=== PATIENT | male | born 1935 | race Caucasian/White ===

== ENCOUNTER → 2016-05-24 | Outpatient (CLI) | payer MEDICARE, OTHER | END | disposition home or self-care (01) | LOC: GMA 19:52 | PROVIDERS: ATTEND Nurse Practitioner Family | DX: R39.15 Urgency of urination (principal) ==

== ENCOUNTER → 2016-06-21 | Outpatient (CLI) | payer MEDICARE, OTHER | END | disposition home or self-care (01) | LOC: GMAL 11:01 | PROVIDERS: ATTEND Family Medicine | DX: Z12.5 Encounter for screening for malignant neoplasm of prostate (principal); D51.3 Other dietary vitamin B12 deficiency anemia | CPT/HCPCS: 82607; G0103 ==

== ENCOUNTER → 2016-06-29 | Outpatient (CLI) | payer MEDICARE, OTHER | END | disposition home or self-care (01) | LOC: GMAL 16:45 | PROVIDERS: ATTEND Family Medicine | DX: D53.9 Nutritional anemia, unspecified (principal); R53.82 Chronic fatigue, unspecified ==

== ENCOUNTER → 2016-07-03 | Outpatient (CLI) | payer MEDICARE, OTHER ==
--- NOTE | 2016-07-03 11:33 | US ---
EXAM DESCRIPTION: Bladder CLINICAL HISTORY: 80 years Male, RENAL INSUFFICIENCY COMPARISON: None. FINDINGS: Bladder ultrasound was performed. There is irregular thickening of the bladder floor measuring approximately 3 cm AP by 3 cm transverse by 1.3 cm thickness. There is questionable additional mild thickening involving a portion of the right bladder wall measuring up to 7 mm thickness. Prevoid bladder volume 122 mL, post void residual volume 55 mL. IMPRESSION: Bladder wall thickening involving the floor of the bladder which may be related to mass effect from an enlarged prostate versus true wall thickening. Questionable additional mild wall thickening involving the right side of the bladder. CT cystogram or cystoscopy is suggested for further evaluation. Moderate amount of post void residual bladder urine as detailed above. Electronically signed by: Jesse Arcos MD 07/03/2016 11:32 AM CDT
== END | disposition home or self-care (01) ==
LOC: US 10:08
PROVIDERS: ATTEND Family Medicine
DX: N17.8 Other acute kidney failure (principal)

== ENCOUNTER 2016-07-20 12:12 | Observation (INO) | payer MEDICARE, OTHER ==
[2016-07-20] MEDS ORDERED: GABAPENTIN 300 MG CAP PO ONE (13:01)
[2016-07-20] MEDS ORDERED: SODIUM CHLORIDE 0.9% 1000ML 1,000 ML IVS ONE (13:01)
[2016-07-20] MEDS ORDERED: MULTIPLE VITAMIN INJ 10 ML, THIAMINE HCL INJ 100 MG in SODIUM CHLORIDE 0.9% 1000ML 1,00... IVS ONE (13:03)
--- NOTE | 2016-07-20 13:24 | RAD ---
EXAM DESCRIPTION: Chest,2 Views CLINICAL HISTORY: worsening tremor COMPARISON: None TECHNIQUE: PA/lateral FINDINGS: The lungs appear to be mildly hyperexpanded but without severe fibrotic lung disease or focal mass or infiltrate. No effusions are noted. The heart is normal in size with tortuous ectatic aortic arch and descending aorta. The vascularity is normal. The velia and mediastinum demonstrate normal contours. The bony spine and chest wall is normal for age in appearance. IMPRESSION: Mildly hyperexpanded chest and tortuous aorta, otherwise negative study. Electronically signed by: Dipak Pulido MD 07/20/2016 1:23 PM CDT
[2016-07-20] MEDS ORDERED: THIAMINE HCL INJ 100 MG/ML VIAL ONE (13:47)
[2016-07-20] MEDS ORDERED: MULTIPLE VITAMIN 10 ML VIAL ONE (13:47)
[2016-07-20] MEDS ORDERED: SODIUM CHLORIDE 0.9% 1000ML 1,000 ML ONE (13:47)
--- NOTE | 2016-07-20 13:52 | ED.PDOC ---
History of Present Illness - General Chief Complaint: Neuro Symptoms/Deficits Time Seen by Provider: 07/20/16 12:29 Source: patient Exam Limitations: no limitations - History of Present Illness Initial Comments: the patient is an 80-year-old male presenting to the emergency room secondary to an increase in his baseline tremors with associated difficulty in walking. The patient apparently ran out of his alprazolam a few days ago and started having the symptoms above yesterday evening. He has been on benzodiazepines for long period of time. I was actually the patient's primary care doctor up until about 2 years ago. He has had a tremor for at least the past 10 years. The benzodiazepines and gabapentin has helped control it. He was just recently set up with Dr. Coelho here in [facility] as his new primary care doctor and has had a thyroid level, B12 level and an iron panel performed that I can find. He does have mild iron deficiency. His B12 and thyroid levels appear normal. There is also some concern for bladder wall thickening. He is being set up with urology for that. he is not having any focal neurological changes. No difficulties with sensation and no new pain. He has no new weakness, simply an increase in his tremor and muscle fasciculations. I have not seen the patient in a few years and he has lost at least 20 pounds from the last time I saw him. He does have COPD and does still smoke. Over the last 6 months he has apparently had increasing difficulties getting around and has started using a cane. Timing/Duration: unsure Severity: moderate Improving Factors: nothing Worsening Factors: nothing Associated Symptoms: weakness Allergies/Adverse Reactions: Allergies Penicillins Allergy (Verified 07/20/16 12:21) Rash Home Medications: Ambulatory Orders Amlodipine Besylate 10 mg PO DAILY 07/20/16 Finasteride 5 mg PO DAILY 07/20/16 Gabapentin 400 mg PO TID 07/20/16 HYDROcodone 10MG/APAP 325MG [[place] 10/325] 1 tab PO TID PRN 07/20/16 Tamsulosin [Flomax] 0.4 mg PO DAILY 07/20/16 Review of Systems - Review of Systems Constitutional: States: malaise EENTM: States: no symptoms reported Respiratory: States: no symptoms reported Cardiology: States: no symptoms reported Gastrointestinal/Abdominal: States: no symptoms reported Genitourinary: States: no symptoms reported Musculoskeletal: States: see HPI Skin: States: no symptoms reported Neurological: States: see HPI, tremors, weakness Endocrine: States: no symptoms reported All other Systems: No Change from Baseline Past Medical History (General) - Patient Medical History Hx Stroke: No Hx Cardiac Disorders: Yes - AAA w/stent placement 2014 Hx Hypertension: Yes Hx Diabetes: No - Vaccination History Hx Influenza Vaccination: No Hx Pneumococcal Vaccination: Yes - 2016 - Social History Hx Tobacco Use: Yes Family Medical History - Family History Father Living Status: Cause of : Cancer Physical Exam - Physical Exam General Appearance: Alert, No apparent distress Eye Exam: bilateral normal Ears, Nose, Throat: hearing grossly normal, normal ENT inspection, normal pharynx Neck: non-tender, full range of motion, supple, normal inspection Respiratory: chest non-tender, lungs clear, normal breath sounds, no respiratory distress, no accessory muscle use Cardiovascular/Chest: normal peripheral pulses, regular rate, rhythm, no edema Peripheral Pulses: radial,right: 2+, radial,left: 2+, dorsalis pedis,right: 2+, dorsalis pedis,left: 2+ Gastrointestinal/Abdominal: non tender, soft Rectal Exam: deferred Back Exam: no CVA tenderness, no vertebral tenderness, other - severe scoliosis is present Extremity: normal range of motion, no pedal edema, no calf tenderness, normal capillary refill, other - significant tremor is present actually in all 4 extremities. He does have significant fasciculations in his upper extremities Neurologic: alert, normal mood/affect, oriented x 3 - the patient maintains normally. Skin Exam: normal color Comments: Vital Signs - 24 hr 07/20/16 12:19 Temperature 98.2 F Pulse Rate [ 88 Left Radial] Respiratory 22 Rate Blood Pressure 143/107 [Left Arm] O2 Sat by Pulse 96 Oximetry Progress - Progress Progress: 07/20/16 16:21 the patient is an 80-year-old male presenting to the emergency room secondary to progressive tremors and fasciculations leading to a significant decline in his functional status as he is unable to get around on his own. The patient did have a baseline tremor to start with. this deterioration has made him be unable to function for himself over the last [address] is negative for acute changes. Lab work is reassuring with the exception of some dehydration. he has received IV fluids here. He has also received thiamine and multivitamin here. The patient does have a long-standing history of poor nutrition but no alcohol abuse. He has lost significant weight over the last few years. He did have approximately 5 minutes of a benign visual hallucination floating gilbert today, here after he received a second dose of Neurontin this morning. he knew it was a hallucination. He has been alert and oriented 4. He has not had any headache or fevers. No recent trauma. I believe the worsening of his movement issues are primarily due to running out of his twice daily benzodiazepine. He has received a dose of Ativan here. It may also have been compounded by getting dehydrated yesterday while mowing the yard. He does take a fairly large dose of Neurontin and the combination of running out of his benzodiazepine and getting somewhat dehydrated may have triggered some extrapyramidal symptoms. The patient has received a dose of oral Cogentin. His tremors and movement abnormalities are improving. He is still not quite back able to ambulate on his own as he obviously was able to do yesterday. The patient will be admitted for further monitoring and he will receive his scheduled routine medications tonight including his benzodiazepines. If he worsens in any way then he will need to be transferred for formal neurological evaluation. He already sees Dr. Gandara in [place] for his pain management. A physical therapy evaluation in the morning may also prove beneficial as he has had significant deterioration physically in his functional status over the last 6 months. - Results/Orders Results/Orders: 07/20/16 Dinner Regular Diet Laboratory Results - last 24 hr 07/20/16 07/20/16 07/20/16 13:25 13:25 13:25 WBC 10.3 RBC 3.82 L Hgb 10.1 L Hct 31.1 L MCV 81.3 MCH 26.4 L MCHC 32.6 L RDW 16.7 H Plt Count 221 MPV 7.8 Absolute Neuts (auto) 8.60 H Absolute Lymphs (auto) 0.80 L Absolute Monos (auto) 0.70 Absolute Eos (auto) 0.10 Absolute Basos (auto) 0.10 Neutrophils % 83.7 H Lymphocytes % 7.4 L Monocytes % 7.0 Eosinophils % 1.1 Basophils % 0.8 Sodium 133 L Potassium 4.2 Chloride 96 L Carbon Dioxide 28 Anion Gap 13.2 BUN 29 H Creatinine 1.40 H BUN/Creatinine Ratio 20.7 H Random Glucose 120 H Serum Osmolality 273.4 L Calcium 9.4 Magnesium 2.4 Total Bilirubin 0.6 AST 27 ALT 16 Alkaline Phosphatase 70 Creatine Kinase 174 CK-MB (CK-2) 4.2 CK-MB (CK-2) % Not Reportable Troponin I < 0.02 B-Natriuretic Peptide 141.0 H Serum Total Protein 7.8 Albumin 4.3 Globulin 3.5 Albumin/Globulin Ratio 1.2 Urine Color Urine Appearance Urine pH Ur Specific [place] Urine Protein Urine Glucose (UA) Urine Ketones Urine Blood Urine Nitrite Urine Bilirubin Urine Urobilinogen Ur Leukocyte Esterase Urine RBC Urine WBC Ur Epithelial Cells Urine Bacteria 07/20/16 13:55 WBC RBC Hgb Hct MCV MCH MCHC RDW Plt Count MPV Absolute Neuts (auto) Absolute Lymphs (auto) Absolute Monos (auto) Absolute Eos (auto) Absolute Basos (auto) Neutrophils % Lymphocytes % Monocytes % Eosinophils % Basophils % Sodium Potassium Chloride Carbon Dioxide Anion Gap BUN Creatinine BUN/Creatinine Ratio Random Glucose Serum Osmolality Calcium Magnesium Total Bilirubin AST ALT Alkaline Phosphatase Creatine Kinase CK-MB (CK-2) CK-MB (CK-2) % Troponin I B-Natriuretic Peptide Serum Total Protein Albumin Globulin Albumin/Globulin Ratio Urine Color Yellow Urine Appearance Clear Urine pH 7.0 Ur Specific [place] 1.015 Urine Protein 30 Urine Glucose (UA) Negative Urine Ketones Negative Urine Blood Small H Urine Nitrite Negative Urine Bilirubin Negative Urine Urobilinogen 0.2 Ur Leukocyte Esterase Negative Urine RBC 3-5 H Urine WBC 0 Ur Epithelial Cells 0 Urine Bacteria [address] shows no acute changes. No hemorrhage. No midline shift. No hydrocephalus. Chest x-ray shows emphysematous changes only. Departure - Departure Clinical Impression: Benzodiazepine withdrawal with delirium, Gait instability Disposition: Admit Patient Referrals: Juliocesar Coelho III, MD [Primary Care Provider] - 1-2 Weeks Home Medications: Ambulatory Orders Amlodipine Besylate 10 mg PO DAILY 07/20/16 Finasteride 5 mg PO DAILY 07/20/16 Gabapentin 400 mg PO TID 07/20/16 HYDROcodone 10MG/APAP 325MG [[place] 10/325] 1 tab PO TID PRN 07/20/16 Tamsulosin [Flomax] 0.4 mg PO DAILY 07/20/16 Decision To Admit - Decistion To Admit Decision to Admit Reason: Medical Nature Decision to Admit Date: 07/20/16 Decision to Admit Time: 16:29
[2016-07-20] MEDS ORDERED: BENZTROPINE MESYLATE TAB 1 MG TAB PO ONE (14:31)
--- NOTE | 2016-07-20 15:07 | CT ---
EXAM DESCRIPTION: Head. CT head without contrast. CLINICAL HISTORY: marked increased tremors last 24 hours COMPARISON: None available TECHNIQUE: Multiple axial images of the head without contrast. This exam was performed according to our departmental dose-optimization program, which includes automated exposure control, adjustment of the mA and/or kV according to patient size and/or use of iterative reconstruction technique. FINDINGS: There is no CT evidence of intracranial hemorrhage, mass effect, or acute cortical infarction. Mild generalized volume loss. Mild patchy supratentorial white matter hypodensities. There are no abnormal extra-axial fluid collections. Vascular structures are unremarkable. There is no acute calvarial defect. Moderate mucosal thickening in the ethmoid air cells. The mastoid air cells are clear. IMPRESSION: 1. No CT evidence of an acute intracranial abnormality. 2. Mild senescent changes. Electronically signed by: Kurt Khalil MD 07/20/2016 3:07 PM CDT
--- NOTE | 2016-07-20 17:19 | HP ---
SUPERVISING PHYSICIAN: Francesco Carrizales MD CHIEF COMPLAINT: "I couldn't walk, I couldn't talk, and I had these jerky movements." HISTORY OF PRESENT ILLNESS: This is an 80-year-old male patient who came to the Emergency Room today due to an increase from his baseline tremors as well as an acute gait instability. His symptoms began a little before midnight last night and have increasingly worsened over the last 24 hours. He does have a significant history of tremors and previously saw Dr. Ba Donohue as his primary care physician about 2 years ago in [place] and has recently started seeing Dr. Coelho here in [place]. He also sees Dr. Gandara in [place] for his pain management. He ran out of his alprazolam about 3 or 4 days ago and so he just stopped taking it. He has been on scheduled benzodiazepines for many years. In the Emergency Room, he was given Cogentin, an extra dose of Neurontin , as well as some fluids. There was also a question whether he got over heated the day before yesterday while mowing a lawn and there was a was also a question if he was dehydrated. In the Emergency Room, he was found to have a slightly low sodium at 133, chloride 96, BUN 29, creatinine 1.4. Glucose 120. BNP 141. WBC 10.3, hemoglobin 10.1, hematocrit 31.1, platelet count 221. Urine had a small amount of urine RBCs as well as a small amount of urine blood. His chest x-ray was basically within normal limits. He had a head CT done that showed no CT evidence of an acute intracranial abnormality and mild senescent changes. His tremors subsided mostly in the Emergency Room, but he did start to have some visual hallucinations, although those subsided at some point. I was called for admission to the hospital. PAST MEDICAL HISTORY: 1. Hypertension. 2. Peripheral vascular disease. 3. Chronic obstructive pulmonary disease. 4. Benign prostatic hypertrophy. PAST SURGICAL HISTORY: 1. Appendectomy. 2. Common iliac angioplasty per Dr. Louis in 2013. 3. Endovascular repair of an 8.2 cm infrarenal abdominal aortic aneurysm per Dr. Sandoval in 2013. CURRENT MEDICATIONS: Per the EMR and awaiting verification. ALLERGIES: PENICILLIN. SOCIAL HISTORY: He is retired. He is . He has 2 children. He currently smokes 2 packs of cigarettes per day. He denies any ETOH or illicit drug use. REVIEW OF SYSTEMS: GENERAL: Positive for a 20 pound weight loss in the last year. Negative for fever or fatigue. HEENT: Denies sinus symptoms, ear pain, or sore throat. RESPIRATORY: Denies wheezing, coughing or shortness of breath. CARDIAC: Denies chest pain, palpitations or tachycardia. GASTROINTESTINAL: Denies nausea, vomiting, diarrhea, or abdominal pain. MUSCULOSKELETAL: Denies arthralgias, myalgias. NEUROLOGIC: As per history of present illness. SKIN: Denies lesions or rashes. PHYSICAL EXAMINATION: VITAL SIGNS: Afebrile. Heart rate 81. Blood pressure 174/96. Respiratory rate 16. O2 saturation 95%. GENERAL: This is a thin, 80-year-old, male patient who is lying in his hospital bed. He is in no acute distress. HEENT: Normocephalic, atraumatic. Pupils are equal and reactive. NECK: Supple without mass. RESPIRATORY: Scattered rhonchi throughout with somewhat distant breath sounds throughout. CARDIAC: Regular rate and rhythm. ABDOMEN: Soft, nondistended, nontender. Bowel sounds are positive. EXTREMITIES: No cyanosis, clubbing or edema. NEUROLOGIC: Awake, alert and oriented times three. There are no visible tremors at this time. SKIN: Warm and dry. LABORATORY AND FILMS: As per history of present illness. ASSESSMENT: 1. Benzodiazepine withdrawal with delirium. 2. Gait instability. The patient does use a cane regularly, but there was a significant change in his gait over the last 24 hours. 3. Acute renal failure with no history of chronic renal failure. 4. Chronic obstructive pulmonary disease. 5. Anorexia. 6. Hypertension. 7. Benign prostatic hypertrophy. 8. Chronic tobacco abuse. PLAN: We will place the patient in observation overnight. We will monitor his neurologic symptoms overnight and re-start his home medications including his Xanax. I will repeat his lab in the morning. He will need close followup with his neurologist, Dr. Gandara, as well as Dr. Coelho, his primary care physician. We will continue to monitor the patient closely and follow as needed. #[id number] [facility]
[2016-07-20] MEDS ORDERED: SODIUM CHLORIDE 0.9% (FLUSH) 10 ML SYG IV PRN (22:05)
[2016-07-20] MEDS ORDERED: ACETAMINOPHEN 325 MG TAB PO PRN (22:10)
[2016-07-20] MEDS ORDERED: HYDROcodone 10MG/APAP 325MG 1 EA TAB PO PRN (22:13)
[2016-07-20] MEDS ORDERED: IV SET AND CAP CHANGE INJ INJ SCH (22:30)
[2016-07-20] MEDS: GABAPENTIN 400 MG CAP PO SCH (22:44)
[2016-07-20] MEDS ORDERED: GABAPENTIN 400 MG CAP ONE (22:44)
[2016-07-20] MEDS ORDERED: ALPRAZolam 0.5 MG TAB PO ONE (23:27)
[2016-07-21] MEDS ORDERED: amLODIPine BESYLATE 5 MG TAB ONE (08:19)
[2016-07-21] MEDS ORDERED: GABAPENTIN 400 MG CAP ONE (08:20)
[2016-07-21] MEDS ORDERED: FINASTERIDE 5 MG TAB PO SCH (09:00)
[2016-07-21] MEDS ORDERED: TAMSULOSIN 0.4 MG CAP PO SCH (09:00)
[2016-07-21] MEDS ORDERED: ALPRAZolam 0.5 MG TAB PO SCH (09:00)
[2016-07-21] MEDS ORDERED: ASPIRIN EC 81 MG TAB PO SCH (09:00)
[2016-07-21] MEDS ORDERED: amLODIPine BESYLATE 5 MG TAB PO SCH (09:00)
[2016-07-21] MEDS: GABAPENTIN 400 MG CAP PO SCH (09:07)
--- NOTE | 2016-07-21 10:34 | DS ---
SUPERVISING PHYSICIAN: Zac Donohue MD DISCHARGE DIAGNOSIS: 1. Benzodiazepine withdrawal with delirium. 2. Gait instability. The patient does use a cane regularly, but there was a significant change in his gait over the last 24 hours. 3. Acute renal failure with no history of chronic renal failure. 4. Chronic obstructive pulmonary disease. 5. Anorexia. 6. Hypertension. 7. Benign prostatic hypertrophy. 8. Chronic tobacco abuse. HISTORY OF PRESENT ILLNESS: This is an 80-year-old male patient who came to the Emergency Room yesterday due to an increase from his baseline tremors as well as an acute gait instability. He said he could not walk, could not talk, and he had jerky movements. His symptoms began a little before midnight that night and had increasingly worsened over the previous 24 hours. He does have a significant history of tremors. He previously saw Dr. Ba Donohue as his primary care physician about 2 years ago in [place] and has recently started seeing Dr. Coelho here in [place]. He also sees Dr. Gandara in [place] for his pain management. He ran out of his alprazolam about 3 or 4 days ago and so he just stopped taking it. He has been on scheduled benzodiazepines for many years. In the Emergency Room, he was given Cogentin, an extra dose of Neurontin , as well as some fluids. He could have been over heated from 2 days prior to admission when he worked out in the yard and he stated he got very hot. In the Emergency Room, he was found to have a slightly low sodium at 133, chloride 96, BUN 29, creatinine 1.4. Glucose 120. BNP 141. WBC 10.3, hemoglobin 10.1, hematocrit 31.1, platelet count 221. His chest x-ray was basically within normal limits. He had a head CT done that showed no CT evidence of an acute intracranial abnormality and mild senescent changes. His tremors subsided mostly in the Emergency Room. At one point in the Emergency Room, he did have some visual hallucinations, although those subsided before he was admitted to the hospital. HOSPITAL COURSE: He has had no significant tremors overnight. He states he feels much better today. His home medications were restarted. Today, his lab is basically unchanged with the exception of his creatinine that went up from 1.4 yesterday to 1.63. I do not have a history of any renal disease although the patient is somewhat a poor historian. His vital signs are stable and the patient can be discharged today. DISCHARGE PLAN: the patient will be discharged home in stable condition. He is to resume his previous diet and increase his activity as tolerated. I have given a prescription for Xanax 0.5 mg p.o. b.i.d., #28, so he has Xanax for [address] see [address] Coelho on 07/26/16 at 2:30 PM. He is also to have a followup with Dr. Gandara. DISCHARGE MEDICATIONS: 1. Finasteride. 2. Amlodipine. 3. Gabapentin. 4. Flomax. 5. Hydrocodone. 6. Alprazolam. Dr. Donohue is the collaborating physician and available for consultation. #[id number] [facility]
[2016-07-21 10:50] VITALS: BP 148/68; TEMP 97.5
[2016-07-21 11:03] VITALS: O2SAT 94
== END 2016-07-21 11:00 | disposition home or self-care (01) ==
LOC: ER 12:12 → MS 17:19
PROVIDERS: ADMIT Nurse Practitioner Acute Care; ATTEND Nurse Practitioner Acute Care
DX: F13.231 Sedative, hypnotic or anxiolytic dependence with withdrawal delirium (principal); T42.4X6A Underdosing of benzodiazepines, initial encounter; R26.89 Other abnormalities of gait and mobility; N17.9 Acute kidney failure, unspecified; J44.9 Chronic obstructive pulmonary disease, unspecified; R63.0 Anorexia; I10 Essential (primary) hypertension; N40.0 Benign prostatic hyperplasia without lower urinary tract symptoms; F17.210 Nicotine dependence, cigarettes, uncomplicated; R26.2 Difficulty in walking, not elsewhere classified; E87.1 Hypo-osmolality and hyponatremia; E61.1 Iron deficiency; Q25.46 Tortuous aortic arch; I73.9 Peripheral vascular disease, unspecified; Z91.128 Patient's intentional underdosing of medication regimen for other reason; Y92.009 Unspecified place in unspecified non-institutional (private) residence as the place of occurrence of the external cause; Z79.899 Other long term (current) drug therapy; Z88.0 Allergy status to penicillin; Z90.49 Acquired absence of other specified parts of digestive tract
CPT/HCPCS: 36415 ×3; 70450; 71020; 80048; 80053; 81001; 82550; 82553; 83735; 83880; 84484; 85025 ×2; 94760 ×4; 96361; 96365; 96366; 96372; 99284; 99406; G0378; J2060; J3411; J7030 ×2

== ENCOUNTER → 2016-08-15 | Outpatient (CLI) | payer MEDICARE, OTHER | END | disposition home or self-care (01) | LOC: GMAL 10:19 | PROVIDERS: ATTEND Family Medicine | DX: D50.8 Other iron deficiency anemias (principal) ==

== ENCOUNTER → 2016-10-05 | Outpatient (CLI) | payer MEDICARE, OTHER | END | disposition home or self-care (01) | LOC: GMAL 10:49 | PROVIDERS: ATTEND Family Medicine | DX: D50.8 Other iron deficiency anemias (principal) ==

== ENCOUNTER → 2017-01-26 | Outpatient (CLI) | payer MEDICARE, OTHER ==
--- NOTE | 2017-01-29 07:48 | US ---
Study: Renal sonogram. Doppler sonogram Indication: RENAL ARTERY STENOSIS Comparison: None Technique: Multiplanar grayscale and Doppler sonographic images of the kidneys obtained. Findings: The bilateral kidneys are appropriate in echogenicity without hydronephrosis or nephrolithiasis. No elevated peak systolic flow velocities of the bilateral renal arteries identified to indicate high-grade stenosis. Renal artery to aortic ratios are within normal limits. Impression: No sonographic evidence of renal artery stenosis. CT angiography could better evaluate if there is high clinical concern for stenosis. Electronically signed by: Adam Rocha MD 01/29/2017 7:47 AM [facility]
== END | disposition home or self-care (01) ==
LOC: US 07:51
PROVIDERS: ATTEND Family Medicine
DX: I70.1 Atherosclerosis of renal artery (principal)

== ENCOUNTER 2017-05-11 11:08 | Inpatient (IN) | payer MEDICARE, OTHER ==
[2017-05-11] MEDS ORDERED: SODIUM CHLORIDE 0.9% 1000ML 1,000 ML IVS PRN (13:20)
--- NOTE | 2017-05-11 13:21 | ED.PDOC ---
History of Present Illness - General Chief Complaint: Neuro Symptoms/Deficits Stated Complaint: falls, altered mental Time Seen by Provider: 05/11/17 13:06 Source: patient, RN notes reviewed, family - History of Present Illness Initial Comments: GENERALIZED WEAKNESS, WEIGHT LOSS MULTIPLE FALLS AT HOME. 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 THE SON AT THE BEDSIDE CONCERNED ABOUT HIS PROGRESSIVE WEIGHT LOSS AND PROGRESSIVE WEAKNESS. THE PATIENT ALSO HAS DEMENTIA AND AT TIMES THERE ARE CIGARETTES BURNING ON THE SOFA AND THE BED. HE IS UNABLE TO WALK. Timing/Duration: 1 week Severity: moderate Improving Factors: nothing Worsening Factors: nothing Associated Symptoms: confusion Allergies/Adverse Reactions: Allergies Penicillins Allergy (Verified 07/20/16 12:21) Rash Home Medications: Ambulatory Orders Amlodipine Besylate 10 mg PO DAILY 07/20/16 Finasteride 5 mg PO DAILY 07/20/16 Gabapentin 400 mg PO TID 07/20/16 HYDROcodone 10MG/APAP 325MG [[place] 10/325] 1 tab PO TID PRN 07/20/16 Tamsulosin [Flomax] 0.4 mg PO DAILY 07/20/16 ALPRAZolam [Xanax] 0.5 mg PO BID #28 07/21/16 Review of Systems - Review of Systems Constitutional: States: no symptoms reported EENTM: States: no symptoms reported Respiratory: States: no symptoms reported Cardiology: States: no symptoms reported Gastrointestinal/Abdominal: States: no symptoms reported Genitourinary: States: no symptoms reported Musculoskeletal: States: joint pain, muscle pain Endocrine: States: no symptoms reported Hematologic/Lymphatic: States: no symptoms reported All other Systems: Reviewed and Negative Past Medical History (General) - Patient Medical History Hx Seizures: No Hx Stroke: No Hx of COPD: Yes Hx Cardiac Disorders: Yes - AAA w/stent placement 2014 Hx Congestive Heart Failure: No Hx Pacemaker: No Hx Hypertension: Yes Hx Diabetes: No Hx MRSA: No Surgical History: other - Vaccination History Hx Influenza Vaccination: Yes Hx Pneumococcal Vaccination: Yes - 2016 - Social History Hx Tobacco Use: Yes Hx Alcohol Use: No Hx Substance Use: No Hx Physical Abuse: No Hx Emotional Abuse: No Family Medical History - Family History Father Living Status: Cause of : Cancer Physical Exam - Physical Exam General Appearance: Alert, Emaciated, Other - CACHECTIC Eye Exam: bilateral normal ENT Exam: normal ENT inspection, other - ORAL MUCOSA IS DRY Neck: non-tender, full range of motion, supple Respiratory: chest non-tender, lungs clear, normal breath sounds, no respiratory distress, no accessory muscle use Cardiovascular/Chest: normal peripheral pulses, regular rate, rhythm, no edema, no gallop, no JVD, no murmur Peripheral Pulses: radial,right: 2+ Gastrointestinal/Abdominal: normal bowel sounds, non tender, soft, no organomegaly, no pulsatile mass Back Exam: no CVA tenderness Extremities Exam: non-tender, normal range of motion Progress - Results/Orders Results/Orders: CXR IS NEGATIVE FOR ACUTE PROCESS. THE CBC WITH ANEMIA OF 9.1 AND THE CREATININE IS 1.82/32 CASE DISCUSSED WITH KYLIE STONEMASON SUPERVISOR AND WILL PLACE THE PATIENT IN THE HOSPITAL. Departure - Departure Clinical Impression: Weakness, Cachexia, Falls frequently Dementia Qualifiers: Dementia type: Alzheimer's disease Alzheimer's disease onset: unspecified onset Dementia behavioral disturbance: without behavioral disturbance Qualified Code(s): G30.9 - Alzheimer's disease, unspecified; F02.80 - Dementia in other diseases classified elsewhere without behavioral disturbance Time of Disposition: 15:44 Disposition: Admit Patient Condition: Fair Referrals: Juliocesar Coelho III, MD [Primary Care Provider] - 1-2 Weeks Home Medications: Ambulatory Orders Amlodipine Besylate 10 mg PO DAILY 07/20/16 Finasteride 5 mg PO DAILY 07/20/16 Gabapentin 400 mg PO TID 07/20/16 HYDROcodone 10MG/APAP 325MG [[place] 10/325] 1 tab PO TID PRN 07/20/16 Tamsulosin [Flomax] 0.4 mg PO DAILY 07/20/16 ALPRAZolam [Xanax] 0.5 mg PO BID #28 07/21/16 Decision To Admit - Decistion To Admit Decision to Admit Reason: Admit from ER Decision to Admit Date: 05/11/17 Decision to Admit Time: 15:42
--- NOTE | 2017-05-11 13:24 | CT ---
EXAM DESCRIPTION: Head CLINICAL HISTORY: altered mental; falls COMPARISON: None available TECHNIQUE: Non contrast cranial CT FINDINGS: Ventricles and sulci are unremarkable for age. There is no hemorrhage or mass. There are no white matter abnormalities detected. The calvarium is unremarkable. The visualized paranasal sinuses and the mastoids are clear. IMPRESSION: 1. Age-appropriate CT head This exam was performed according to our departmental dose-optimization program, which includes automated exposure control, adjustment of the mA and/or kV according to patient size and/or use of iterative reconstruction technique. Electronically signed by: Albin Middleton MD 05/11/2017 1:23 PM [facility]
--- NOTE | 2017-05-11 13:35 | RAD ---
EXAM DESCRIPTION: Chest,1 View CLINICAL HISTORY: Shortness of breath COMPARISON: July 20, 2016 IMPRESSION: Single upright portable frontal view of the chest. Cardiac silhouette and pulmonary vascularity are within normal limits. Calcific atherosclerosis and tortuosity noted of the thoracic aorta. Lung volumes are hyperinflated, compatible with COPD changes. Lungs are clear without focal consolidative infiltrates. No pleural effusion. No pneumothorax. IMPRESSION: 1. No radiographic evidence for acute cardiac pulmonary process. 2. COPD changes. 3. Other findings as above. Electronically signed by: Juliocesar Quinn MD 05/11/2017 1:34 PM [facility]
--- NOTE | 2017-05-11 16:18 | HP ---
SUPERVISING PHYSICIAN: Francesco Carrizales M.D. CHIEF COMPLAINT: Acute mental status changes and falling with weakness. HISTORY OF PRESENT ILLNESS: This is an 81 year-old male patient who presented to the Emergency Room today due to multiple falls at home. He lives at home alone, does his own cooking. He smokes 2 packs of cigarettes a day and continues to drive. He is a patient of Dr. Juliocesar Miguel and he started seeing him in May of last year. He was in the hospital last year in June of 2016 and at that time had reported a 20 pound weight loss in the prior year, and since June of 2016 has had an additional 14 pound weight loss. He was 59.1 kg in June of last year and today he is 52.5 kg. His workup in the Emergency Room showed WBC of 7.9 but he does have a left shift with neutrophils of 80, hemoglobin is 9.1 with hematocrit 28.7, platelets 364. Electrolytes are basically within normal limits with BUN 32 and creatinine 1.82 with a baseline creatinine of 1.8. Urinalysis was within normal limits. Chest x-ray per radiology interpretation shows no radiographic evidence for acute cardiopulmonary processes with chronic obstructive pulmonary disease changes. There was family concerns that the patient was falling frequently and becoming weaker and weaker. He does not eat. He actually fell last night and had to drag himself into his home because he could not feel his legs. According to the granddaughter, he has had trouble walking for several months but it has worsened in the last month. A CT of the head was also done and showed age- appropriate CT of the head. I was called for admission to the hospital. PAST MEDICAL HISTORY: 1. Hypertension. 2. Peripheral vascular disease. 3. Chronic obstructive pulmonary disease. 4. Benign prostatic hypertrophy. 5. Chronic renal insufficiency. 6. Lower back pain. PAST SURGICAL HISTORY: 1. Appendectomy. 2. Common iliac angioplasty per Dr. Louis in 2013. 3. Endovascular repair of an 8.2 cm infrarenal abdominal aortic aneurysm per Dr. Sandoval in 2013. 4. Right eye surgery in 2017. CURRENT MEDICATIONS: Per the EMR and awaiting verification. ALLERGIES: PENICILLIN. SOCIAL HISTORY: He is retired. He is . He has 2 children. He currently smokes 2 packs of cigarettes per day. He denies any ETOH or illicit drug use. REVIEW OF SYSTEMS: Positive for fatigue and 20+ pound weight loss in the last year. Actually according to our records, he had lost 20 pounds in the year prior to June of 2016 and has since lost over 14 pounds, so in less than a year and half he has had a greater than 30 pound weight loss. He is negative for fever. HEENT: Negative for sinus symptoms, ear pain, sore throat or vision changes. RESPIRATORY: Positive for chronic coughing. Negative for wheezing or shortness of breath. CARDIAC: Negative for chest pain, palpitations or tachycardia. GASTROINTESTINAL: Positive for anorexia but negative for nausea or vomiting. MUSCULOSKELETAL: As per history of present illness. NEUROLOGIC: As per History of Present Illness. SKIN: Denies lesions or rashes. PHYSICAL EXAMINATION: VITAL SIGNS: He is afebrile, heart rate 64, blood pressure 120/64, respiratory rate 16, O2 sat is 93%. GENERAL: This is a very thin 81 year-old male patient who is lying in his hospital bed. He is in no acute distress. He is very disheveled and unkempt. HEENT: Normocephalic and atraumatic. Pupils are equal and reactive. Oral mucous membranes are dry. His tongue is stained yellow with nicotine. NECK: Supple without mass. RESPIRATORY: Essentially clear to auscultation, although his breath sounds are somewhat distant throughout and diminished at the bases. CARDIOVASCULAR: Regular rate and rhythm. ABDOMEN: Soft, nondistended, non-tender. Bowel sounds are positive. EXTREMITIES: No cyanosis, clubbing or edema. NEUROLOGIC: He is awake. He is alert. He answers most simple questions appropriately, although he does repeat himself quite frequently and his speech is slightly slurred. SKIN: Warm and dry. LABORATORY: Labs and films are as per the history of present illness. ASSESSMENT: 1. Neurological deficits with ataxia and extreme weakness, including falling and unable to feel his legs. 2. Acute changes in mental status with specific concerns for personal safety at home, RE: Leaving cigarettes lit, driving and cooking for himself. 3. Significant weight loss. It is documented in his chart that in June 2016 he weighed 59.1 kg and now weighs 52.5 kg. On his admission in June 2016, it was reported in his records that he had had a 20 pound weight loss the previous year, which means in less than 18 months he has lost greater than 30 pounds. 4. Anorexia and cachexia. 5. Dehydration. 6. Anemia of unknown etiology. 7. Chronic renal failure with a creatinine of 1.8. PLAN: We will admit the patient to the hospital. Will give him some fluids. We will do neurologic checks. I will also get a physical therapy evaluation. He may need further testing, including a carotid ultrasound. I have ordered a PPI for ulcer prophylaxis as well as Lovenox for DVT prophylaxis. We will restart his home medications once they are verified. We will continue to monitor the patient closely and follow as needed. Dr. Carrizales is the collaborating physician available for consultation. [facility][id number] [facility]
[2017-05-11] MEDS ORDERED: CALCIUM CARBONATE (ANTACID) 500 MG CHEWABLE TAB PO PRN (17:44)
[2017-05-11] MEDS ORDERED: SODIUM CHLORIDE 0.9% (FLUSH) 10 ML SYG IV PRN ×2 (17:50→18:03)
[2017-05-11] MEDS ORDERED: PANTOPRAZOLE SODIUM IV 40 MG VIAL IV SCH (18:00)
[2017-05-11] MEDS ORDERED: IV SET AND CAP CHANGE INJ INJ SCH ×2 (18:00→18:30)
[2017-05-11] MEDS ORDERED: ALBUTEROL SULFATE 2.5 MG/3 ML VIAL NEB PRN (18:03)
[2017-05-11] MEDS ORDERED: DEX 5% W/NACL 0.45% 1000ML 1,000 ML IVS ONE (18:42)
[2017-05-11] MEDS ORDERED: IPRATROPIUM/ALBUTEROL 3 ML VIAL INH SCH (20:00)
[2017-05-11] MEDS ORDERED: HYDROcodone 7.5MG/APAP 325MG 1 EA TAB PO ONE (20:30)
[2017-05-11] MEDS: ALPRAZolam 0.5 MG TAB PO SCH (22:05)
[2017-05-11] MEDS: GABAPENTIN 400 MG CAP PO SCH (22:06)
[2017-05-11] MEDS: CARVEDILOL 12.5 MG TAB PO SCH (22:06)
[2017-05-11] MEDS: levETIRAcetam 250 MG TAB PO SCH (22:06)
[2017-05-12] MEDS: IPRATROPIUM/ALBUTEROL 3 ML VIAL NEB SCH ×4 (08:25→20:23)
[2017-05-12] MEDS: SODIUM CHLORIDE 0.9% (FLUSH) 10 ML SYG IV SCH ×2 (09:19→20:45)
[2017-05-12] MEDS: FINASTERIDE 5 MG TAB PO SCH (10:04)
[2017-05-12] MEDS: ASPIRIN EC 81 MG TAB PO SCH (10:04)
[2017-05-12] MEDS: CARVEDILOL 12.5 MG TAB PO SCH ×2 (10:04→20:44)
[2017-05-12] MEDS: amLODIPine BESYLATE 5 MG TAB PO SCH (10:04)
[2017-05-12] MEDS: levETIRAcetam 250 MG TAB PO SCH ×2 (10:04→20:45)
[2017-05-12] MEDS: ALPRAZolam 0.5 MG TAB PO SCH ×2 (10:04→20:44)
[2017-05-12] MEDS: GABAPENTIN 400 MG CAP PO SCH ×3 (10:04→20:44)
[2017-05-12] MEDS ORDERED: DEX 5% W/NACL 0.45% 1000ML 1,000 ML IVS ONE (11:09)
[2017-05-12] MEDS: HYDROcodone 7.5MG/APAP 325MG 1 EA TAB PO PRN ×2 (12:33→19:53)
--- NOTE | 2017-05-12 15:03 | PN ---
DATE: 05/12/17 SUPERVISING PHYSICIAN: Francesco Carrizales M.D. SUBJECTIVE: The patient is sitting up in his chair eating his lunch. He complains of back pain and extreme weakness. He has no complaints of chest pain , nausea, vomiting or diarrhea. OBJECTIVE: VITAL SIGNS: He is afebrile, heart rate 57, blood pressure 114/56, respiratory rate 20, O2 sat is 92% on 2 liters nasal cannula. RESPIRATORY: Coarse breath sounds throughout, diminished at the bases. CARDIAC: Regular rate and rhythm. GASTROINTESTINAL: Abdomen is soft, nondistended, non-tender. Bowel sounds are positive. The patient is very cachectic. NEUROLOGIC: He is awake. He is alert. He gets confused but is fairly easy to reorient. LABORATORY: Hemoglobin has dropped to 8.2, hematocrit 25.8. Electrolytes are basically within normal limits except creatinine is elevated at 1.76 with BUN 29 , glucose 125. TSH is 2.28. His physical therapy evaluation reports that the patient presents sitting on the side of the bed. He is alert but disoriented to place or time. Complaining of chronic back pain and pain in his legs. He has poor balance, decreased strength, decreased endurance and poor safety awareness. He remained in a crouched position despite verbal cues for extension. There was increased weakness noted in the ankle joints, decreased activity tolerance, decreased functional mobility requiring assistance to sit and to transfer, unsteadiness to his gait, elevated safety concerns due to the patient living alone with weakness and multiple falls. It is recommended that the patient not return home alone. ASSESSMENT: 1. Neurological deficits with ataxia and extreme weakness, including falling and unable to feel his legs. 2. Acute changes in mental status with specific concerns for personal safety at home, RE: Leaving cigarettes lit, driving and cooking for himself. 3. Significant weight loss. It is documented in his chart that in June 2016 he weighed 59.1 kg and now weighs 52.5 kg. On his admission in June 2016, it was reported in his records that he had had a 20 pound weight loss the previous year, which means in less than 18 months he has lost greater than 30 pounds. 4. Anorexia and cachexia. 5. Anemia with microcytic hypochromic presentation. 6. Dehydration that has improved. 7. Chronic renal failure with a creatinine of 1.8. PLAN: We will continue present supportive care. He will continue with physical therapy. I have ordered stool guaiacs to help with the source of his anemia. I would expect that his H&H would be more elevated in a chronic smoker. I have also ordered a carotid ultrasound. At some point either as an outpatient or during this hospital visit he will need a CT of the abdomen as well as a CT of the chest for further evaluation of weight loss and anemia. I will hold on labs until tomorrow. We will continue with the strengthening and conditioning with physical therapy. He will most likely need to be discharged to a fpc care facility. According to his family, it would be [facility]. We will continue to monitor him closely and follow as needed. Dr. Carrizales is the collaborating physician available for consultation. #[id number] [facility]
[2017-05-12] MEDS: PANTOPRAZOLE SODIUM IV 40 MG VIAL IV SCH (20:45)
[2017-05-13] MEDS: HYDROcodone 7.5MG/APAP 325MG 1 EA TAB PO PRN ×4 (02:57→23:34)
[2017-05-13] MEDS: IPRATROPIUM/ALBUTEROL 3 ML VIAL NEB SCH ×4 (08:30→19:50)
[2017-05-13] MEDS: amLODIPine BESYLATE 5 MG TAB PO SCH (09:54)
[2017-05-13] MEDS: ASPIRIN EC 81 MG TAB PO SCH (09:54)
[2017-05-13] MEDS: GABAPENTIN 400 MG CAP PO SCH ×3 (09:54→21:30)
[2017-05-13] MEDS: FINASTERIDE 5 MG TAB PO SCH (09:54)
[2017-05-13] MEDS: levETIRAcetam 250 MG TAB PO SCH ×2 (09:54→21:30)
[2017-05-13] MEDS: ALPRAZolam 0.5 MG TAB PO SCH ×2 (09:54→21:30)
[2017-05-13] MEDS: CARVEDILOL 12.5 MG TAB PO SCH ×2 (09:56→21:30)
[2017-05-13] MEDS: SODIUM CHLORIDE 0.9% (FLUSH) 10 ML SYG IV SCH ×2 (09:56→21:31)
--- NOTE | 2017-05-13 14:53 | PN ---
DATE: 05/13/17 SUPERVISING PHYSICIAN: Francesco Carrizales M.D. SUBJECTIVE: The patient is sitting up in his hospital room. He is eating his lunch. He continues to feel very weak but answers questions appropriately, seems less confused than yesterday. He denies any shortness of breath, chest pain, nausea or vomiting, diarrhea or constipation. OBJECTIVE: VITAL SIGNS: T-max 24 hours is 99.5, heart rate 66, blood pressure 116/63, respiratory rate 18, O2 saturation is 96%. It has dropped as low as 88 % when on room air and with exertion. RESPIRATORY: Scattered rhonchi throughout, diminished; at the bases. CARDIAC: Regular rate and rhythm. GASTROINTESTINAL: Abdomen is soft, nondistended, non-tender. Bowel sounds are positive. NEUROLOGIC: He is awake. He is alert. He gets confused but reorients easily. LABORATORY: There are no labs or films to report at this time. ASSESSMENT: 1. Neurological deficits with ataxia and extreme weakness, including falling and unable to feel his legs. That is slowly improving. 2. Acute changes in mental status with specific concerns for personal safety at home, RE: Leaving cigarettes lit, driving and cooking for himself. 3. Significant weight loss. It is documented in his chart that in June of 2016 he weighed 59.1 kg and now weighs 52.5 kg. On his admission in June of 2016 , it was reported in his records that he had a 20-pound weight loss the previous year which means in less than 18 months he has lost greater than 30 pounds. 4. Anorexia and cachexia. 5. Anemia with microcytic hypochromic presentation. 6. Dehydration that has improved. 7. Chronic renal failure with a creatinine of 1.8. PLAN: We will continue present supportive care. I have ordered labs for in the morning. He will continue with his conditioning and strengthening with physical therapy. We have not received any stool guaiacs to investigate his anemia but he will most likely need a full workup of CT of the chest and abdomen to evaluate his weight loss as well as his anemia. Hopefully, he can be discharged to [facility] for physical therapy and care and we will continue to monitor him closely and follow as needed. Dr. Carrizales is the collaborating physician available for consultation. #[id number] [facility]
[2017-05-13] MEDS: PANTOPRAZOLE SODIUM IV 40 MG VIAL IV SCH (21:30)
--- NOTE | 2017-05-14 07:16 | RAD ---
EXAM DESCRIPTION: Chest,1 View CLINICAL HISTORY: copd COMPARISON: May 11, 2017 FINDINGS: The cardiomediastinal silhouette is unremarkable. There is some subtle alveolar opacity in the right lung base and apex with mild blunting of the right costophrenic angle. No additional airspace consolidation is seen. There is no left-sided effusion. The lung volumes are at the upper limits of normal range. There is no pneumothorax or acute fracture. IMPRESSION: Atelectasis versus developing pneumonia in the right lung with a possible small right-sided effusion. Upper normal lung volumes consistent with provided history of COPD. Electronically signed by: Jesse Arcos MD 05/14/2017 7:15 AM FIELD SERVICE SPECIALIST
[2017-05-14] MEDS: IPRATROPIUM/ALBUTEROL 3 ML VIAL NEB SCH ×2 (08:01→12:45)
[2017-05-14] MEDS: HYDROcodone 7.5MG/APAP 325MG 1 EA TAB PO PRN ×2 (08:28→14:08)
[2017-05-14] MEDS: levETIRAcetam 250 MG TAB PO SCH (08:29)
[2017-05-14] MEDS: CARVEDILOL 12.5 MG TAB PO SCH (08:29)
[2017-05-14] MEDS: ALPRAZolam 0.5 MG TAB PO SCH (08:29)
[2017-05-14] MEDS: SODIUM CHLORIDE 0.9% (FLUSH) 10 ML SYG IV SCH (08:30)
[2017-05-14] MEDS: FINASTERIDE 5 MG TAB PO SCH (08:30)
[2017-05-14] MEDS: ASPIRIN EC 81 MG TAB PO SCH (08:30)
[2017-05-14] MEDS: GABAPENTIN 400 MG CAP PO SCH (08:30)
[2017-05-14] MEDS: amLODIPine BESYLATE 5 MG TAB PO SCH (08:30)
--- NOTE | 2017-05-14 10:52 | US ---
EXAM DESCRIPTION: Carotid Duplex CLINICAL HISTORY: ams COMPARISON: None Available. TECHNIQUE: Color Doppler evaluation of the extracranial carotids FINDINGS: Right carotid: There is mild intimal thickening of the right common carotid artery. Moderate to severe heterogeneous mostly calcified irregular plaque in the right carotid bulb extending into the internal and external carotid arteries is seen. Peak systolic velocity common carotid artery = 51 cm/s Peak systolic velocity internal carotid artery = 161 cm/s Peak systolic velocity external carotid artery = 73 cm/s ICA CCA ratio 3.2 Left carotid: Left common carotid arteries unremarkable. There is heterogeneous irregular moderate mostly calcified plaque of the left carotid bulb extending into the proximal internal and external carotid arteries with irregular calcified plaque in the left mid ICA. Peak systolic velocity common carotid artery = 72 cm/s Peak systolic velocity internal carotid artery = 51 cm/s Peak systolic velocity external carotid artery = 71 cm/s ICA CCA ratio 0.7 Antegrade flow is seen in both vertebral arteries Normal flow velocities and waveforms are demonstrated bilaterally. IMPRESSION: Moderate mostly calcified right greater than left plaque is seen in the carotid bulb to internal carotid arteries. Elevated velocity and ratio in the right ICA suggests at least 60-79% stenosis. Velocity and ratios in the left ICA suggest less than 39% stenosis. Electronically signed by: Zeke Noyola MD 05/14/2017 10:50 AM FINANCIAL OFFICER
[2017-05-14 11:02] VITALS: BP 129/71; TEMP 97; O2SAT 96
[2017-05-14] MEDS ORDERED: PANTOPRAZOLE SODIUM TAB 40 MG PO SCH (11:30)
--- NOTE | 2017-05-14 15:08 | DS ---
DISCHARGE DIAGNOSIS: 1. Significant neurological decline with deficits resulting in dystaxia, weakness, falling and inability to care for himself safely at home and requiring ongoing rehabilitation before safely being able to return home. 2. Altered mental status also reducing the chances of his safely being care for at home. 3. Significant weight loss with attendant weakness of undetermined etiology. Probably related to inadequate caloric intake with most of his symptoms starting after aortic aneurysmal stent placement. 4. Chronic anorexia and cachexia. 5. Chronic anemia with microcytic/hypochromic presentation. 6. History of dehydration, showing improvement with supplementation. 7. Chronic renal insufficiency with a baseline creatinine of 1.8. HISTORY OF PRESENT ILLNESS: This 81-year-old white male was admitted to the hospital from the Emergency Room because of multiple falls noted at home. One of the falls will significantly injure him and for this reason he was admitted to the hospital for specific evaluation. Significant weight loss of over 20 and up to 30 pounds has been noted. The patient states that a lot of his weight loss happened while he had endovascular repair of an infrarenal abdominal aortic aneurysm in 2013. The family notes him losing weight, not eating well at home and falling repetitively and requiring significant intervention to prevent catastrophic injury and worsening of his ongoing illness. The patient was placed in the hospital for the purpose of getting stronger and to evaluate if possible for any underlying symptoms suggestive a cause of his significant weight loss. LABORATORY: White count was normal at 8,900, hemoglobin down to 8.5 with a microcytic/hypochromic presentation, neutrophils 80%. Chemistry showed potassium 3.9, BUN down from 32 to 28, creatinine from 1.8 to 1.7. Glucose 94, calcium 8.8. TSH normal at 2.28. Albumin 2.8. Urinalysis clean. No cultures obtained. Head CT shows changes of age related effects. Chest x-ray initially showed no acute findings and repeat chest x-ray showed persistence of emphysema and the possibility of atelectasis developing in the right lung. Close followup is necessary. Carotid ultrasound was performed and reveals 60 to 79% obstructive process in the right carotid. HOSPITAL COURSE: The patient's condition slowly improved to the point where he was very much willing to continue with rehabilitation on an outpatient basis at [facility]. PLAN: The patient will be transferred with orders and instructions to [facility] for continued ongoing care and nursing assistance. For medications, please refer to list of medications the chart. Physical therapy will continue to assist with ongoing rehab and strengthening. Special attention to gain as well as increasing his strength. Special attention to avoid falls. Dr. Coelho will assist with ongoing close observation and continued evaluation regarding his weight loss. Return if not improving. [facility][id number] [facility]
== END 2017-05-14 15:00 | DRG 92 ==
LOC: ER 11:08 → MS 16:17 → OBSVTOIN 16:17
PROVIDERS: ADMIT Nurse Practitioner Acute Care; ATTEND Emergency Medicine
DX: R27.0 Ataxia, unspecified (principal); R64 Cachexia; Z68.1 Body mass index [BMI] 19.9 or less, adult; R53.1 Weakness; R41.82 Altered mental status, unspecified; E86.0 Dehydration; D64.9 Anemia, unspecified; N18.9 Chronic kidney disease, unspecified; R63.0 Anorexia; I12.9 Hypertensive chronic kidney disease with stage 1 through stage 4 chronic kidney disease, or unspecified chronic kidney disease; I73.9 Peripheral vascular disease, unspecified; J44.9 Chronic obstructive pulmonary disease, unspecified; N40.0 Benign prostatic hyperplasia without lower urinary tract symptoms; M54.5 Low back pain; R29.6 Repeated falls; Z60.2 Problems related to living alone; G30.9 Alzheimer's disease, unspecified; F02.80 Dementia in other diseases classified elsewhere, unspecified severity, without behavioral disturbance, psychotic disturbance, mood disturbance, and anxiety; F17.210 Nicotine dependence, cigarettes, uncomplicated; Z79.891 Long term (current) use of opiate analgesic; Z88.0 Allergy status to penicillin; Z79.899 Other long term (current) drug therapy

== ENCOUNTER → 2017-05-23 | Outpatient (CLI) | payer MEDICARE, OTHER ==
--- NOTE | 2017-05-23 16:48 | CT ---
EXAM DESCRIPTION: Chest w/o Contrast : Computed Tomography. CLINICAL HISTORY: WEIGHT LOSS COMPARISON: CT scan of the abdomen and pelvis on the same visit. TECHNIQUE: Spiral-axial scans at 5.0 mm intervals through the lungs and thorax without IV contrast. 2.5 mm lung algorithm axial reconstructions. Coronal and sagittal 2.0 Mm reconstructions. Total Exam DLP: 403.82 mGy-cm. This exam was performed according to our departmental dose-optimization program which includes automated exposure control, adjustment of the mA and/or kV according to patient size and/or use of iterative reconstruction technique; to reduce radiation dose to as low as reasonably achievable (ALARA). FINDINGS: Hyperinflation of the lungs bilaterally. Small parenchymal blebs more numerous in the upper lung raphael. No dominant bulla bilaterally. 6 mm scar or nodule with spiculated borders posterior lateral inferior right upper lobe (series 5, image 52). Another smaller region of density more inferiorly. No pleural effusion or pneumothorax bilaterally. Thickened soft tissue with spiculation in the medial segment of the right lower lobe abutting the mediastinum and the posterior hilum, on images 55-72. There is a mass which may be originating from the mediastinum abutting the medial descending thoracic aorta which extends into the medial pleura and lung parenchyma. The left lateral margin of the mass abutting approximately 40% of the aortic wall. Margins are not well defined but extends approximately 6.2 cm craniocaudal and 2.9 cm transverse and 3.6 cm AP. Also associated with soft tissue density or mass with slightly spiculated borders in the posterior right hilum measuring approximately 2 x 2.5 cm. The mass is abutting the anterior T6-T8 vertebral bodies. Coronary artery stents/calcifications. Brachiocephalic vessels calcified approximately. Heterogeneous density in the thyroid gland. Ectasia and diffuse atherosclerotic calcifications in the descending aorta. Multiple levels of thoracic endplate spurs with disc space narrowing. No bone destruction in the included spine with degenerative changes in the bilateral glenohumeral joints more on the left and degenerative changes in the costosternal and costovertebral joints. IMPRESSION: 1. 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 Greatest dimension is over 6 cm parallel to the spine. This could represent a contiguous tumor spreading from the lung or metastatic lesion. 2. emphysematous changes in the lungs. Atherosclerotic changes in the aorta and other thoracic vessels. Lung nodules. Electronically signed by: Law Stover MD 05/23/2017 4:47 PM [employer]
--- NOTE | 2017-05-23 21:25 | CT ---
EXAM DESCRIPTION: Abdoment/Pelvis w/o Contrast: Computed Tomography. CLINICAL HISTORY: WEIGHT LOSS COMPARISON: CT scan of the chest without IV contrast on this visit. TECHNIQUE: Spiral-axial scans 5.0 mm intervals through the abdomen and pelvis with water soluble oral contrast. No IV contrast. Coronal and sagittal 2.0 mm reconstructions. Total Exam DLP: 425.55 mGy-cm. This exam was performed according to our departmental CT dose-optimization program which includes automated exposure control, adjustment of the mA and/or kV according to patient size and/or use of iterative reconstruction technique; to reduce radiation dose to as low as reasonably achievable (ALARA). FINDINGS: Aorta: Moderate atherosclerotic calcification of the aorta with a aortic Endo stent beginning just below the level of the intrarenal arteries. 3.5 x 3.1 cm transverse and 6.8 cm in length before it bifurcates into bilateral common iliac branches extending to the bilateral bifurcations. The outer margin of the aneurysm is calcified and extends from the anterior spine to the inner anterior abdominal wall measuring 8.2 x 7.6 cm. Craniocaudal dimension is 12.1 cm. Patency and integrity of the stent cannot be determined without IV contrast. Liver, stomach, spleen, and adrenal glands: Evaluation of abdominal organs is limited due to lack of IV contrast. Long axis of right lobe is 17.7 cm. Inhomogeneous density. 2 subcapsular regions in the posterior right lobe with Hounsfield density +16 and 12 5. Calcification in the central left lobe. Left adrenal gland measures 3 x 2 cm with Hounsfield density +6. Right adrenal gland and spleen unremarkable. Stomach contains oral contrast.. Pancreas, Gallbladder, and Ducts: Gallbladder is elongated with sludge or stones in the dependent fundus. Mass effect on the duodenum and pancreas on the abdominal aortic aneurysm. Margins of the pancreas are difficult to identify. Kidneys and Ureters: Bilateral calcifications in the kidneys appear to be mailed likely related to vascular structures due to location but cannot definitely exclude bilateral upper collecting system stones. No hydronephrosis. No abnormal perinephric stranding. Mid and distal ureters are difficult to identify due to oral contrast and aneurysm stent. Mesentery: No free fluid or free air. Small Bowel: Oral contrast throughout most of the small bowel except for distal ileum, with no obstruction. Terminal Ileum/Cecum: Terminal ileum difficult to identify in the right lower quadrant. Cecum distended with fecal material with neither organ containing oral contrast. Unable to identify the appendix. Colon: Distention of the cecum and ascending colon and proximal transverse colon with fecal matter. The remainder of the transverse colon courses inferior to the lower segment of the aneurysm. Distention of these descending colon by fecal material. Redundancy of the distal sigmoid colon extending into the rectum. Pelvic Organs: Urinary bladder is minimally distended with the prostate gland impressing on the base and the seminal vesicles. Central calcifications in the gland Spine and Bony Pelvis: Significant disc space loss and near fusion of the L2-3 disc space. Near stenosis of the bilateral foramina. Other discs are bulging. Retrolisthesis L3-4 with gas formation in the disc. Bilateral foraminal stenosis. Narrowing of the included thoracic disc spaces. Multiple levels of foraminal narrowing. Abdominal Wall/Back Soft Tissues: Question hernia or surgical defect in the mid abdomen at the linea alba which is to the right of midline (series 2, image [id number]). IMPRESSION: 1. Limited study due to lack of IV contrast and paucity of abdominal fat and mesentery. 2. Large infrarenal abdominal aortic aneurysm with the original dimensions 8.2 x 7.6 cm transverse and 12.1 cm craniocaudal. Aortic-iliac stent is in place. Patency and integrity of the stent cannot be evaluated without IV contrast. No free fluid in the abdomen or pelvis. 3. Liver contains 2 objects which are most likely cysts. 4. 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 5. Small bowel obstruction is unlikely. Obstipation of the proximal colon by fecal material is present as well as the descending colon. No free intraperitoneal air. 6. Vascular calcifications more likely than intrarenal stones in the bilateral kidneys. Electronically signed by: Law Stover MD 05/23/2017 9:24 PM [employer] Workstation: [id number]
== END ==
LOC: CT 08:00
PROVIDERS: ATTEND Family Medicine
DX: R63.4 Abnormal weight loss (principal); R91.1 Solitary pulmonary nodule